=== PATIENT | female | born 1960 | race Caucasian/White ===

== ENCOUNTER → 2023-07-28 06:40 | Outpatient (REF) | payer OTHER, SELFPAY | LOC: RSP 06:40 | PROVIDERS: ATTENDING PHYSICIAN Internal Medicine Cardiovascular Disease; FAMILY PHYSICIAN Family Medicine | DX: Z79.899 Other long term (current) drug therapy (principal); N17.9 Acute kidney failure, unspecified | CPT/HCPCS: 94727; 94729; 76775; 88738; 94060 ==

== ENCOUNTER 2023-10-15 08:27 | Day surgery (SDC) | payer OTHER, SELFPAY ==
[2023-10-15] VITALS (8 sets, daily range): BP systolic 171–232; BP diastolic 71–84; BMI 25.0
[2023-10-15 12:17] LABS: ACT-LR - POC 326 Seconds (116-155)
[2023-10-15 12:39] LABS: ACT-LR - POC 294 Seconds (116-155)
--- NOTE | 2023-10-15 13:51 | ITS.CL.ABL ---
[facility]keeper - Ablation
Ablation
Procedure Report:
AFIB ablation:
Ms. Torres is a very pleasant 63 yr old woman with medical history significant for symptomatic atrial flutter and paroxysmal atrial fibrillation on Amiodarone on Eliquis, is here in the EP lab for atrial fibrillation ablation
Date of Procedure:
10/15/23
Indications:
Symptomatic atrial fibrillation / atrial flutter
Pre-Operative Diagnosis:
Paroxysmal atrial fibrillation / atrial flutter
Post-Operative Diagnosis:
Paroxysmal atrial fibrillation / atrial flutter
Procedure Performed:
Atrial fibrillation ablation with wide area circumferential ablation (WACA) approach for pulmonary vein isolation
Atrial flutter ablation with cavo-tricuspid isthmus line block formation
Performing Physician:
Marian Sahni MD
Assistants:
EP staff
Anesthesia:
See anesthesia records
Detailed Description of the Procedure:
Written informed consent was obtained from the patient after a full explanation of the risks and benefits of the procedure including the risks of sedation and anesthesia.
The patient was brought to the electrophysiology laboratory in stable condition in fasting state. Continuous electrocardiographic and hemodynamic monitoring was initiated.
The initial rhythm was normal sinus rhythm.
The procedure site was meticulously prepared with surgical scrub and allowed to dry with no pooling. Sterile draping was applied to cover the procedure site. The image intensifier was draped with sterile bag and positioned over the patient. After
infusion of local anesthetic, vascular access was obtained under ultrasound guidance and sheaths were placed over guide wire as detailed below.
Sheath and Catheter Placement:
In the right femoral vein, an 8-Haitian sheath was placed for use during the ablation procedure. A second 9-Fr sheath was placed for use during intracardiac echo procedure. �Another 7 Fr sheath was placed in the right femoral vein for CS placement.
The sheaths were upgraded as needed during the case. Intracardiac catheters were positioned using direct fluoroscopic guidance.� ICE catheter was placed in RA. The following catheters / sheaths were placed
Sheaths:
��������������� Carto Visigo sheath in right femoral vein upgraded from 8Fr in right femoral vein
��������������� 9Fr in right femoral vein
��������������� 7Fr in right femoral vein
Catheters:
������������� [employer] Lacy Thermacool STSF bidirectional (D/F) - at locations of HRA, RV, LA and LV.
������������� Pentaray catheter � at locations of RA, CS and LA
������������� ICE catheter - at locations of RA, SVC, and RV.
������������� Bard decapolar catheter at RA and CS locations
Heparin was initiated and infused to maintain appropriate ACT.
Intracardiac ECHO:
An 8-Haitian AcuNav intracardiac ECHO (ICE) probe was advanced through the 9-Haitian sheath in the femoral vein into the right atrium under fluoroscopic and ICE ultrasound image guidance and a baseline ECHO study was performed. The left atrial size
was enlarged. There was moderate tricuspid regurgitation. The aortic valve was grossly normal. There was normal left ventricular systolic functions. There was trace pericardial effusion. All the veins were identified and good flow noted.
The RA was identified and CTI was imaged. There was Eustachian ridge noted and was imaged throughout the ablation.
During the procedure, ICE was used for monitoring of complications, guidance of trans-septal puncture, monitor the catheter position and tracking ablation lesions. No change in the pericardial space noted throughout the procedure.
Electroanatomic mapping of the right atrium:
A J-tipped guidewire was advanced through the 8-Haitian sheath in the right femoral vein into the superior vena cava under fluoroscopic and ICE guidance. The 8-Haitian sheath was exchanged for a VIZIGO sheath which was advanced into the superior vena
cava.
There was normal AH and HV noted.
Using the Pentaray catheter advanced through VIZIGO sheath into the right atrium, an electroanatomic map (EAM) of the right atrium was created using [employer] Carto mapping system. The map was used to identify the trans-septal location. It
showed moderately dilated right atrium.
Ablation # 1: Typical Atrial Flutter Ablation:
Patient has a clear history of atrial flutter and as per pre-operative plan. Radiofrequency ablation was performed using a 3.5mm, open irrigation, force-sensing bidirectional ablation catheter (Thermocool STSF) in the cavotricuspid isthmus from the
tricuspid annulus to the IVC ridge. �All the ablation lesions were guided by the [facility] SURPOINT module with the CTI lesions were limited to 40-45 garcia for SURPOINT lesion index goal of 450.
��������������� -Bidirectional block was confirmed across the CTI line with differential pacing.
��������������� -Double potentials were spaced greater than 92 msec apart.
��������������� -The conduction time across the CTI line from proximal CS pacing was 148 msec.
��������������� -EAM of the right atrium was obtained with coronary sinus pacing and showed a line of block at the CTI.
��������������� -The time interval just lateral to the ablation lesions was 148 msec and the lateral wall was 132 msec
��������������� - All these maneuvers confirmed the block at the CTI line.
- Post ablation HV interval was unchanged at 35msec
Then attention was given to atrial fibrillation ablation.
Trans-septal Puncture:
A J-tipped guidewire was advanced through the dilator of the [employer] sheath in the right femoral vein into the superior vena cava under fluoroscopic and ICE guidance the sheath was advanced into the SVC. A BRK needle was advanced until the tip was
slightly behind the tip of the dilator inside the Visigo sheath. The apparatus was withdrawn until it was in contact with the fossa ovalis. The position was adjusted based on EAM and ultrasound images from ICE. Under EAM, hemodynamic and ICE
ultrasound guidance, left atrium was cannulated by advancing the needle. Once atrial septum was cannulated, the saline injection was given into the left atrium. The dilator with the needle was withdrawn. Blood was aspirated from the sheath and
arterial blood confirmed. The sheath was flushed. Saline injection noted into the left atrium on ICE. The pressure waveform was checked ad LA pressure measured. The penta-ray catheter was advanced in the sheath into the left pulmonary vein.
The 3-D mapping was done and then the penta-ray was switched to ablation catheter and back to penta-ray as needed.
3D Electroanatomic Mapping - LA:
Using the Pentaray catheter advanced through VIZIGO sheath into the left atrium, an electroanatomic map (EAM) of the left atrium was created using [employer] Carto mapping system. The map was used for localization of catheter position and
tacking of ablation lesions. The EAM of the left atrium showed a 2 left sided veins with 4 right sided (right superior, middle anterior, middle posterior and right inferior) veins with all 6 electrically connected to the body the LA. It showed no
significant scar in the LA. The LA was mildly dilated in size.
Following the EAM, preparations were made for ablation.
Phrenic nerve stimulation attempt:
The right sided pulmonary veins were identified and the anterior antrum and the deep anterior locations of the PVs were check with high output stimulation 20mA for 4 milliseconds that showed no phrenic nerve capture in any of the potential ablation
areas.
No phrenic nerve capture was noted and the safe areas were marked and a design line was created through the areas of tested antral myocardium for ablation lesions.
Ablation # 2: Pulmonary vein Isolation:
Radiofrequency ablation was performed using an open irrigation, force-sensing 3.5mm radiofrequency ablation catheter ([employer] STSF) by completing the circumferential lesions around the left and right pulmonary veins achieving pulmonary vein
isolation.
All the ablation lesions were guided by the [employer] SURPOINT module with the posterior lesions were limited to 45 garcia for SURPOINT lesion index goal of 400 and anterior wall lesions were limited to SURPOINT index goal of 450.
The esophagus was noted to be on the left side of the LA near the PV antra based on the locations of the esophageal temperature probe as imaged on ICE. Ablation was stopped for any temperature increase of 0.1 degree C. Max esophageal temperature was
37.6C.
EP study and Confirmation of the PVI and bidirectional block:
Following achievement of entrance block at the pulmonary veins, pacing from the pentaray catheter in each of the four veins at 10 milliamps for 2 milliseconds showed entrance and exit block. All PVI were rechecked at the end of the case and remained
isolated with dissociated and local capture with pacing. Entrance and exit block were demonstrated in all veins.
The LA was mapped with Carto EAM in sinus rhythm confirming the line of block at the ablation lesions lines.
EP study:
Sinus Node Function: The sinus node functions are within acceptable normal range.
Arrhythmia Induction:
No sustained arrhythmia was induced at the end of the study.�
Procedure End
ICE study was done again that showed no epicardial accumulation. No complications noted.
Following the completion of the EP study, catheters were removed. Protamine 40 mg was given at the end of the procedure and ACT was checked repeatedly. The sheaths were removed and hemostasis achieved with Vascade and manual compression after
acceptable ACT is achieved.
Left atrial Pressure:
Pre-ablation: Mean LA pressure was 19mmHg
Post-ablation: Mean LA pressure was 13mmHg
Post ablation RA pressure: 11 mmHg
Estimated Blood loss:
<10 cc
Specimens Removed:
None.
Implants / Devices:
None
Urine output:
None
Packs / Drains/ Tubes:
None
Instrument / Sponge Count Correct:
Yes
Complications of the Procedure:
None
Condition of Patient at Time of Transfer:
Hemodynamically stable with no neurological or vascular compromise.
Summary:
Successful atrial fibrillation ablation with circumferential bidirectional line of block at pulmonary vein antra (Pulmonary vein isolation), CTI line formation for typical atrial flutter
--- NOTE | 2023-10-15 15:53 | W.PN.UPDATE ---
Update Note
Progress Note Update
63 yo WF s/p PVI, CTI flutter ablation (same day). She feels good, no cp, sob, caitlyn diet, voiding, amb w/o dizziness. EKG SR, R fem site c/d/i no HT, soft. She will take her Eliquis at 8pm at home. Activity restrictions reviewed. Her bp has been
running high but she is very anxious 170's/80's. She will monitor at home for the next week and bring log to f/u apt. She is for d/c home after 430p if groin stable.
Ms. Torres is a very pleasant 63 yr old woman with medical history significant for symptomatic atrial flutter and paroxysmal atrial fibrillation on Amiodarone on Eliquis, is here in the EP lab for atrial fibrillation ablation
10/15/23
Procedure Performed:
Atrial fibrillation ablation with wide area circumferential ablation (WACA) approach for pulmonary vein isolation
Atrial flutter ablation with cavo-tricuspid isthmus line block formation
== END 2023-10-15 16:30 | disposition home or self-care (01) ==
LOC: CATH 08:27
PROVIDERS: ATTENDING PHYSICIAN Internal Medicine Cardiovascular Disease; FAMILY PHYSICIAN Family Medicine; OTHER PHYSICIAN Internal Medicine Cardiovascular Disease
DX: I48.0 Paroxysmal atrial fibrillation (principal); I48.92 Unspecified atrial flutter; Z88.8 Allergy status to other drugs, medicaments and biological substances; Z88.2 Allergy status to sulfonamides; Z88.0 Allergy status to penicillin; Z79.01 Long term (current) use of anticoagulants
CPT/HCPCS: C1769; C1894; C1730; C1732; C1892; C1759; 76937; 85347; 93005; 93655; 93656; C1760